=== PATIENT | female | born 1985 | race Caucasian/White ===

== ENCOUNTER 2020-08-11 08:00 | Outpatient (RCR) | payer OTHER, SELFPAY ==
--- NOTE | 2020-08-28 15:05 | MHC.PT.DC ---
[facility] [place] Office [place] Office [place] Office [address] Cherri Stark 140 [facility] [phone] F: [phone] F: [phone] F: [phone] F: [phone] Physical Therapy Discharge Report Diagnosis: PATELLAR DISLOCATION Date of Surgery: Date of Evaluation: 05/15/20 Date of Discharge: Treatments to Date: 22 Cancellations to Date: 0 No Shows to Date: 0 Discharge Status: Improved Function Independent with HEP Insurance Declined Tx Discharge Summary: INSURANCE WILL NOT ALLOW FURTHER VISITS. SHYANN REPORTS INDEPENDENCE WITH HEP AND WILL CONTACT US IF SHE HAS ANY FURTHER QUESTIONS OR DIFFICULTIES. Electronically signed by: RICARDO TIM PT, DPT Please sign and return to therapist. Thank you for your referral.
== END 2020-08-28 15:08 | disposition other institution (70) ==
LOC: HO.PT 08:00
PROVIDERS: Visit Provider Physician Assistant
DX: S83.005D Unspecified dislocation of left patella, subsequent encounter (principal); X58.XXXD Exposure to other specified factors, subsequent encounter
CPT/HCPCS: 97110; 97530

== ENCOUNTER 2025-07-16 16:59 | Emergency (ER) | payer SELFPAY ==
--- NOTE | 2025-07-16 | ECG_ITS ---
Test Reason : CP Blood Pressure : */* mmHG Vent. Rate : 75 BPM Atrial Rate : 75 BPM P-R Int : 164 ms QRS Dur : 88 ms QT Int : 348 ms P-R-T Axes : 59 61 55 degrees QTcB Int : 388 ms Normal sinus rhythm Septal infarct , age undetermined Abnormal ECG No previous ECGs available Referred By: Generic ED Physician Electronically Signed By: TOREY BARILLAS MD
--- NOTE | ~2025-07-16 | XR_ITS ---
CLINICAL HISTORY: chest pain 2 view chest x-ray. Comparison: None. Findings: No consolidation. No pneumothorax. Heart size normal. No acute fracture. Impression: Lungs are clear. This document has been electronically signed by: Mark Ramos MD on 07/16/2025 18:35:09
[2025-07-16 17:20] VITALS: BP 124/85; PULSE 80; RESP 18; TEMP 37; O2SAT 98; BMI 22.5
--- NOTE | 2025-07-16 17:23 | ED.CHESTPAIN ---
HPI - Chest Pain General Chief Complaint: Chest Pain Stated Complaint: having symptoms of a heart attack, chest pain Related Data Allergies Allergy/AdvReac Type Severity Reaction Status Date / Time No Known Allergies Allergy Unverified 07/16/25 17:25 [facility] Social History Social History Advance Directives: No Advance Directives Information Provided: No Physical Exam Vital Signs: Vital Signs: Last Vital Signs Temp 98.2 F 07/16/25 18:36 Pulse 70 07/16/25 18:36 Resp 20 07/16/25 18:36 BP 118/80 07/16/25 18:36 Pulse Ox 98 07/16/25 18:36 O2 Del Method Room Air 07/16/25 18:36 BMI result Body Mass Index 22.5 Course Course Course Narrative: This is a Rapid Medical Examination (RME) performed by Robert Rasheed PA-C in triage. Full HPI, ROS, assessment and treatment plan per primary provider in the Main ED. Hx: 40 yo F here w/ chest pain rad to left shoulder/left elbow x1.5 hours. no sob. covid+ 1 week ago. PE/vitals: well appearing Plan: labs, ekg, cxr Reevaluation(s) Reevaluation #1: Patient left the emergency department before myself or any of the other clinicians could review or explain physical exam findings, test results, need or lack there of for additional testing, treatment options, or a treatment plan. Medical Decision Making Lab Data 07/16/25 17:48 07/16/25 17:48 Labs: Lab Results 07/16/25 Range/Units 17:48 WBC 7.6 (4.8-10.8) X10*3/uL RBC 4.23 (4.20-5.50) X10*6/uL Hgb 14.1 (12.0-16.0) g/dl Hct 40.3 (37.0-47.0) % MCV 95.3 (80.0-98.0) fL MCH 33.3 H (27.0-33.0) pg MCHC 35.0 (31.0-35.0) g/dl RDW 12.1 (11.0-16.0) % Plt Count 272 (160-400) X10*3/uL MPV 10.6 (9.4-12.3) fL Immature Gran % (Auto) 0.7 H (0.0-0.4) % Neut % (Auto) 64.7 (45-73) % Lymph % (Auto) 26.6 (20-40) % [place] % (Auto) 5.8 (2-11) % Eos % (Auto) 1.5 (0-4) % Baso % (Auto) 0.7 (0-2) % Lymph # (Auto) 2.0 (1.2-4.9) X10*3/uL [place] # (Auto) 0.4 (0.1-1.2) X10*3/uL Eos # (Auto) 0.1 (0.0-0.4) X10*3/uL Baso # (Auto) 0.1 (0.0-0.2) X10*3/uL Abs Immat Gran (auto) 0.05 H (0.00-0.03) X10*3/uL Absolute Neuts (auto) 4.9 (2.0-8.3) x10*3/uL Absolute Nucleated RBC 0.000 (0.0-0.012) X10*3/uL Nucleated RBC % (auto) 0.0 (0.0-0.2) /100WBC Sodium 140 (135-145) mmol/L Potassium 4.9 (3.3-5.1) mmol/L Chloride 105 (96-108) mmol/L Carbon Dioxide 25 (22-29) mmol/L Anion Gap 15 (12-20) BUN 17 H (9-16) mg/dL Creatinine 0.71 (0.5-1.4) mg/dL Estim Creat Clear Calc 96.6 Estimated GFR > 60 Random Glucose 85 (60-115) mg/dL Calcium 9.6 (8.4-10.2) mg/dL Magnesium 2.2 (1.6-2.6) mg/dL Total Bilirubin 0.3 (0.0-1.0) mg/dL AST 20 (5-31) U/L ALT 16 (0-31) U/L Alkaline Phosphatase 56 (39-117) U/L Troponin I High Sens < 2.7 (<3.5-17.0) ng/L Total Protein 8.0 (6.5-8.0) g/dL Albumin 4.9 (3.5-5.0) g/dL Discharge Plan Discharge Clinical Impression: Atypical chest pain Patient Disposition: Left W/O Completing Treatment Interventions: LWBS Worksheet Last Done: 07/16/25 19:06 Discharge Date/Time: 07/16/25 19:05
[2025-07-16 17:53] LABS: MANUAL DIFF FLAG NO
[2025-07-16 18:00] LABS: Hematocrit 40.3 % (37.0-47.0); Hemoglobin 14.1 g/dl (12.0-16.0); Imm Gran Abs Auto 0.05 X10*3/uL (0.00-0.03); Imm Gran Pct Auto 0.7 % (0.0-0.4); Lymphocytes Absolute Auto 2.0 X10*3/uL (1.2-4.9); Mean Corpuscular HGB Conc 35.0 g/dl (31.0-35.0); Mean Corpuscular Hemoglobin 33.3 pg (27.0-33.0); Mean Corpuscular Volume 95.3 fL (80.0-98.0); NRBC Abs Auto 0.000 X10*3/uL (0.0-0.012); NRBC Pct Auto 0.0 /100WBC (0.0-0.2); Platelet Count 272 X10*3/uL (160-400); Red Blood Count 4.23 X10*6/uL (4.20-5.50); White Blood Count 7.6 X10*3/uL (4.8-10.8)
[2025-07-16 18:09] LABS: Alanine Aminotransferase 16 U/L (0-31); Albumin Level 4.9 g/dL (3.5-5.0); Alkaline Phosphatase 56 U/L (39-117); Anion Gap 15 (12-20); Aspartate Amino Transferase 20 U/L (5-31); Blood Urea Nitrogen 17 mg/dL (9-16); Calcium 9.6 mg/dL (8.4-10.2); Carbon Dioxide 25 mmol/L (22-29); Chloride 105 mmol/L (96-108); Creatinine Clr Calc Pharmacy 96.6; Estimated Glomerular Filt Rate > 60; Magnesium 2.2 mg/dL (1.6-2.6); Potassium 4.9 mmol/L (3.3-5.1); Sodium 140 mmol/L (135-145); Total Protein 8.0 g/dL (6.5-8.0)
[2025-07-16 18:17] LABS: Troponin-I High Sensitivity < 2.7 ng/L (<3.5-17.0)
[2025-07-16 18:36] VITALS: BP 118/80; PULSE 70; RESP 20; TEMP 36.8; O2SAT 98
--- OUTSIDE RECORDS SUMMARY | 2025-07-16 18:50 | XMS_ITS | Clinical Summary ---
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 Will call us for referral once appointment is made. Advised if she ever wants to switch to someone closer I can give her provider contact info. Will check A1c today to see if she in fact is in the pre-diabetic range. Discussed that she is not a candidate for combo OCP treatment for her PCOS due to her migraine with aura. Will follow her [id number] or sooner if needed. Schedule CPE for sometime in the next 4-6months. Loss of hair 10/27/2016 Assessment & Plan (10/27/2016 9:51 AM EST): Differential diagnosis: PCOS, thyroid abnormality, low ferritin, telogen effluvium from life stressors and much less likely more serious forms of alopecia as there are no bald spots. Will check TSH and ferritin today. Discussed starting biotin for now. Also briefly discussed spironolactone if we end up feeling this is PCOS related. Lastly discussed referral to dermatology if she desires in the future. Need for prophylactic vaccin ation and inoculation against influenza 10/27/2016 Assessment & Plan (10/27/2016 9:56 AM EST): Patient will be given influenza vaccine today. Tinea pedis of both feet 10/27/2016 Assessment & Plan (10/27/2016 9:57 AM EST): ? Dry skin and fissuring vs tinea pedis. Will have her try clotrimazole otc bid for 2-4 weeks and if no improvement could refer to derm or podiatry. Immunizations Immunization Administration Dates Next Due Influenza Quadrivalent Preservative Free IM 10/07 Family History Medical History Relation Comments Drug use disorder Father Diabetes Maternal Grandfather 1 Drug use disorder Maternal Grandfather 1 Diabetes mellitus Maternal Grandfather 3 Dementia Maternal Grandmother 1 Drug use disorder Maternal Grandmother 1 Stroke Maternal Grandmother 3 Depression Mother Coronary artery disease Paternal Grandfather Drug use disorder Paternal Grandfather Drug use disorder Paternal Grandmother Depression Sister Cancer Neg Hx Relation Status Comments Father may have ETOH us e d/o Maternal Grandfather 1 Maternal Grandfather 2 Maternal Grandfather 3 Maternal Grandmother 1 Maternal Grandmother 2 Maternal Grandmother 3 Mother Paternal Grandfather May have ET [place] use d/o Paternal Grandmother May have ET [place] use d/o Sister Social History Tobacco Use Types Packs/Day Years Used Date Smoking Tobacco: Never Education Answer Date Recorded Are you interested in more education? Not on elliot e 03/03/2023 Are you concerned about learning? Not on file 03/03/2023 No 03/03/2023 No 03/03/2023 Digital Access Answer Date Recorded No 04/03/2023 No 04/03/2023 No 04/03/2023 Reliable internet access at home? Not on file 04/03/2023 Device with a working camera? Not on file Comments No Sex and Gender Information Value Date Recorded Sex Assigned at Female 06/14/2023 4:00 PM EDT Legal Sex Female 2:11 PM EST Gender Identity Female 06/14/2023 4:00 PM EDT Sexual Orientation Straight 06/14/2023 4: 00 PM EDT Last Filed Vital Signs Vital Sign Reading Time Taken Comments Blood Pressure 96/55 03/27/2024 8:04 AM EDT Pulse 82 03/27/2024 8:04 AM EDT Temperature 35.7 C (96.3 F) 03/27/2024 8:04 AM EDT Respiratory Rate 14 10/27/2016 8:35 AM EST Oxygen Saturation 98% 03/27/2024 8:04 AM EDT Inhaled Oxygen Concentration - - Weight 61.2 kg (135 lb) 10/27/2016 8:35 AM EST Height 160 cm (5' 3 ) 10/27/2016 8:35 AM EST Body Mass Index 23.91 10/27/2016 8:35 AM EST Plan of Treatment Health Maintenance Due Date Last Done Comments DEPRESSION SCREENING 1999 HEPATITIS C SCREENING 2005 HIV ONE-TIME SCREENING (18-65 YEARS) 2005 PAP SMEAR 01/22/2008 Adult Td,Tdap Booster 09/20/2017 09/20/2007, 999 INFLUENZA VACCINE (#1) 2025 , 09/01/2022, 08/26/2021, Additional history exists COVID-19 VACCINE ( season) 2025 08/19/2023, 09/01/2022, 09/08/2021, Additional history exists MENINGOCOCCAL VACCINES (ACWY) Aged Out 08/01/2005 No longer eligible based on patient's age to complete this topic HEPATITIS A VACCINES Aged Out 04/09/2013, 09/20/20 07 No longer eligible based on patient's age to complete this topic SMOKING STATUS SCREENING (Once After 26 Yrs) Completed 10/27/2016 HIB VACCINES Aged Out No longer eligi ble based on patient's age to complete this topic MENINGOCOCCAL VACCINES (B) Aged Out N o longer eligible based on patient's age to complete this topic PNEUMOCOCCAL VACCINES (0-49 years) Aged Out No longer eligible based on patient's age to complete this topic Medical Devices Not on file Insurance [facility] [address] [place], [place] [id number] [place], [place] [id number] Care Teams Toll Service Observer Relationship Specialty Start Date End Date Slime Fowler NP PCP - General Nurse Practitioner 06/14/23 Additional Source Comments The information contained in this document represents components of the legal health record. It is not the complete legal health record.[facility]
--- OUTSIDE RECORDS SUMMARY | 2025-07-16 18:50 | XMS_ITS | Encounter Summary ---
Author Organization [facility] Address [address] [place] [address] Phone Care Team Providers Care Management Scientist Name Role Phone Abigail Smith MD Primary Care Provider + Abigail Smith MD Unavailable [phone] Yamilka Mcfarland NP Unavailable Laxmi Farr MD Unavailable Huber Nice MD Unavailable [phone] Abigail Smith MD Unavailable [phone] Unknown, Unknown Primary Care Provider Slime Richards NP Primary Care Provider [phone] Encounter Details Date Type Department Care Team (Late st Contact Info) Description 10/27/2016 Transcribe Orders [facility] [address] [place] [address] Abigail Smith MD [address] [address] [email or web address] Social History Tobacco Use Types Packs/Day Years Used Date Smoking Tobacco: Never Comments No Sex and Gender Information Value Date Recorded Sex Assigned at Female 06/14/2023 4:00 PM EDT Legal Sex Female 2:11 PM EST Gender Identity Female 06/14/2023 4:00 PM EDT Sexual Orientation Straight 06/14/2023 4: 00 PM EDT documented as of this encounter Plan of Treatment Not on file documented as of this encounter Visit Diagnoses Not on filedocumented in this encounter Care Teams Management Scientist Relationship Specialty Start Date End Date Abigail Smith MD [email or web address] PCP - General Family Medicine 10/18/16 10/16/18 Unknown, Mary, [address] [address] PCP - General 10/17/18 06/13/23 Slime Fowler NP [address] [address] PCP - General Nurse Practitioner 06/14/23 Abigail Smith MD [address] [address] [email or web address] Insurance Assigned Provider 01/07/17 04/08/17 Yamilka Mcfarland, ROSEMARIE [address] [place] [address] [facility] [address] [email or web address] Historical LMR Provider 08/24/17 11/13/21 Laxmi Farr MD [address] [facility], 2nd [place] [address] [email or web address] Historical LMR Provider 08/24/17 Huber Nice MD [address] [facility] [address] [place] [address] [email or web address] Historical LMR Provider 08/24/17 11/13/21 Abigail Smith MD [address] [address] [email or web address] Partners Attributed Provider 11/11/17 12/02/17 documented as of this encounter Additional Source Comments The information contained in this document represents components of the legal health record. It is not the complete legal health record.[facility]
--- NOTE | 2025-07-16 19:02 | PC.NURSE ---
Pt reporting she has no pain, stated there is no reason to stay as she is fine and saw her blood work was normal. Educated patient on importance of being seen by a provider. patient declined and stated she would follow up with pcp tomorrow. Left without completing treatment a 1904
== END 2025-07-16 19:05 | disposition left against medical advice (07) ==
PROVIDERS: Physician Assistant Medical; Emergency Provider Emergency Medicine; PCP Family Medicine
DX: R07.89 Other chest pain (principal); R07.9 Chest pain, unspecified
CPT/HCPCS: 36415; 71046; 80053; 83735; 84484; 85025; 93005; 99283; 99285

== ENCOUNTER → 2025-07-16 17:03 | Outpatient (BNV) | payer OTHER, SELFPAY | PROVIDERS: Emergency Provider Emergency Medicine; PCP Family Medicine; Visit Provider Internal Medicine Cardiovascular Disease | DX: R94.31 Abnormal electrocardiogram [ECG] [EKG] (principal); R07.89 Other chest pain | CPT/HCPCS: 93010 ==

== ENCOUNTER → 2025-07-16 17:23 | Outpatient (BNV) | payer OTHER, SELFPAY | PROVIDERS: PCP Family Medicine; Visit Provider Radiology Diagnostic Radiology | DX: R07.89 Other chest pain (principal) | CPT/HCPCS: 71046 ==